=== PATIENT | male | born 1950 | race Caucasian/White ===

== ENCOUNTER 2016-04-05 15:29 | Emergency (ER) | payer MEDICARE ==
[2016-04-05 16:04] VITALS: BP 133/100
--- NOTE | 2016-04-05 16:30 | UC ---
General HPI - HPI Summary HPI Summary: Pt states he has several issues: thinks he has bronchitis because he has had bronchitis before, continuous deep coughing and trouble breathing. Has two other issues: states he has generalized anxiety disorder, and has an Rx for that and states he ran out of that Rx and can't get to see his provider ( Dr. Higginbotham). States he took the last pill of lorazepam last pm. and states his last issue is anemia. States he has been buying iron OTC. States he does not have a PCP, "has been trying to find one". When asked, " what have you done to find one?" He states "What haven't I done to find one". Lives by himself. States he has no friends. States he gets out of the house every so often to go to the recovery center which he attends for mental health. Denies suicidal or homicidal ideation. - History of Current Complaint Chief Complaint: UCGeneralIllness Stated Complaint: SORE THROAT Time Seen by Provider: 04/05/16 16:17 Hx Obtained From: Patient Onset/Duration: Gradual Onset, Lasting Days Timing: Constant Onset Severity: Mild Current Severity: Mild Associated Signs & Symptoms: Positive: Cough, Weakness - chronic with anemia, Other - anxiety. Negative: Chest Pain - Allergy/Home Medications Allergies/Adverse Reactions: Allergies Allergy/AdvReac Type Severity Reaction Status Date / Time No Known Allergies Allergy Verified 04/05/16 15:44 Home Medications: Home Medications Divalproex ER TAB(*) [Depakote ER TAB(*)] 1,000 mg PO DAILY 04/05/16 [History Confirmed 04/05/16] Ferrous Sulfate TAB* 325 mg PO DAILY 04/05/16 [History Confirmed 04/05/16] LORazepam TAB(*) [Ativan TAB(*)] 1 mg PO TID PRN 04/05/16 [History Confirmed ] Lurasidone HCl [Latuda] 60 mg PO DAILY 04/05/16 [History Confirmed 04/05/16] PMH/Surg Hx/FS Hx/Imm Hx Previously Healthy: No Endocrine History Of: Reports: Thyroid Disease Psychological History Of: Reports: Bipolar Disorder - Surgical History Surgical History: Yes Surgery Procedure, Year, and Place: Benign cyst scalp. Benign cyst from nasal passage - Family History Known Family History: Positive: Hypertension - Social History Occupation: Disabled Alcohol Use: None Substance Use Type: None Smoking Status (MU): Never Smoked Tobacco Review of Systems Constitutional: Negative Skin: Negative Eyes: Negative ENT: Negative Respiratory: Cough Cardiovascular: Negative Gastrointestinal: Negative Genitourinary: Negative Motor: Negative Neurovascular: Negative Musculoskeletal: Negative Neurological: Negative Psychological: Anxious All Other Systems Reviewed And Are Negative: Yes Physical Exam Triage Information Reviewed: Yes Appearance: No Pain Distress, Well-Nourished, Ill-Appearing Vital Signs: Initial Vital Signs Temp 98.1 F 04/05/16 15:33 Pulse 78 04/05/16 15:33 Resp 18 04/05/16 15:33 BP 133/100 04/05/16 15:33 Pulse Ox 98 04/05/16 15:33 elevated BP noted Vital Signs Reviewed: Yes ENT: Positive: Normal ENT inspection Neck: Positive: Supple, Nontender, No Lymphadenopathy Respiratory: Positive: Lungs clear, Normal breath sounds, No respiratory distress Cardiovascular: Positive: RRR, No Murmur, Pulses Normal, Brisk Capillary Refill Musculoskeletal: Positive: Strength Intact, ROM Intact, No Edema Neurological: Positive: Alert, Muscle Tone Normal Psychological Exam: Normal Skin Exam: Normal Course/Dx - Differential Dx - Multi-Symptom Differential Diagnoses: Other - bronchitis, anxiety, anemia Provider Diagnoses: bronchitis. generalized anxiety disorder. anemia by history Discharge - Discharge Plan Condition: Stable Disposition: HOME Prescriptions: Amoxicillin (*) 875 mg PO BID #20 tab hydrOXYzine HCL TAB* [Atarax TAB*] 25 mg PO QID PRN #12 tab PRN Reason: Anxiety Patient Education Materials: Acute Bronchitis (ED), Generalized Anxiety Disorder (ED) Referrals: Cesar Kelly MD [Medical Doctor] - Non Staff,Doctor [Primary Care Provider] - Additional Instructions: Dr. Hercules left a message with Gail at Dr. Kelly's office for a medication refill for you of your lorazepam. You will have to wait 3-5 days for the prescription to go through. We asked for it to be sent to [facility]. In the mean time you may take atarax 25mg four times a day as needed. Take the amoxicillin as directed for bronchitis. If your symptoms of anxiety and anemia or bronchitis worsen, you will need to go to the emergency room. You also need to get a primary care provider. We have given you a list of providers in this area.
== END 2016-04-05 16:54 | disposition home or self-care (01) ==
LOC: UCCORT 15:29
DX: J40 Bronchitis, not specified as acute or chronic (principal); F41.1 Generalized anxiety disorder; D64.9 Anemia, unspecified
CPT/HCPCS: 99202; G0463